=== PATIENT | male | born 1945 | race Caucasian/White ===

== ENCOUNTER 2018-04-29 14:30 | Outpatient (CLI) | payer MEDICARE, BC ==
[~2018-04-29 14:30] MED LIST: Iopamidol 370 76% 100 ML VIAL ONE
== END 2018-04-29 14:31 | disposition home or self-care (01) ==
LOC: BICCT 14:30
PROVIDERS: ATTEND Family Medicine
DX: R10.9 Unspecified abdominal pain (principal); I31.1 Chronic constrictive pericarditis; K76.0 Fatty (change of) liver, not elsewhere classified
CPT/HCPCS: 74177

== ENCOUNTER 2018-05-31 13:38 | Outpatient (CLI) | payer MEDICARE, BC ==
--- NOTE | 2018-05-31 15:11 | ULT ---
ULTRASOUND WITH DOPPLER DUPLEX VENOUS LOWER EXTREMITY RIGHT: CPT: 81009 ICD-10-PCS: B54D HISTORY: Erythema, edema, and pain of right lower extremity. TECHNIQUE: Color flow Doppler, spectral waveform analysis of pulsed Doppler, and hester-scale imaging with denise lizzy and augmentation, were used to evaluate the bilateral common femoral, femoral, popliteal, industrial maintenance electrician ior tibial, and superficial femoral, veins; and the proximal portions of the profunda femoral and gre ater saphenous, veins. FINDINGS: There is appropriate compressibility and flow within the imaged deep vein system of the right lower e xtremity. There is abnormal increased echogenicity involving superficial vein of the medial right calf indicati ng superficial vein thrombus. IMPRESSION: 1. No deep vein thrombosis of the imaged right lower extremity. 2. Superficial thrombophlebitis. POS: [facility]
== END 2018-05-31 13:39 | disposition home or self-care (01) ==
LOC: SCSULT 13:38
PROVIDERS: ATTEND Physician Assistant
DX: R60.9 Edema, unspecified (principal); I80.01 Phlebitis and thrombophlebitis of superficial vessels of right lower extremity

== ENCOUNTER 2018-09-10 05:11 | Inpatient (IN) | payer MEDICARE, BC ==
[2018-09-10 06:05] LABS: #Lymphocytes 1.2 thou/uL (1.20-3.40); #Monocytes 0.8 thou/uL (0.11-0.59); #Neutrophils 6.4 thou/uL (1.40-6.50); %Basophils 0.5 % (0.0-1.0); %Eosinophils 0.5 % (0.0-10.0); %Lymphocytes 14.1 % (21.0-51.0); %Monocytes 9.2 % (0.0-10.0); %Neutrophils 75.7 % (42.0-75.0); Hemoglobin 17.8 g/dL (14.0-18.0); Mean Corpuscular Hemoglobin 29.9 pg (27.0-31.0); Mean Corpuscular Volume 87.9 fL (78.0-98.0); Mean Platelet Volume 7.4 fL (7.4-10.4); Platelet Count 200 thou/uL (130-400); RBC Distribution Width 12.5 % (11.5-14.5); Red Blood Cell (RBC) Count 5.96 mill/uL (4.70-6.10); White Blood Cell (WBC) Count 8.5 thou/uL (4.8-10.8)
[2018-09-10] MEDS ORDERED: Ondansetron PF 4 MG/2 ML Vial ONE (06:22)
[2018-09-10] MEDS ORDERED: Pantoprazole 40 MG VIAL ONE (06:22)
[2018-09-10] MEDS ORDERED: Morphine 4 MG/ML VIAL ONE ×2 (06:22→08:50)
[2018-09-10 06:29] LABS: ALT (SGPT) 23 U/L (8-55); AST (SGOT) 18 U/L (5-34); Albumin 4.4 g/dL (3.4-4.8); Alkaline Phosphatase 93 U/L (40-150); Anion Gap 17 mmol/L (10-20); BUN (Urea Nitrogen) 26 mg/dL (8.4-25.7); Bilirubin, Total 1.5 mg/dL (0.2-1.2); CK (CPK) 50 U/L (30-200); Calc. Creatinine Clearance 0 mL/min (70-130); Calcium 9.6 mg/dL (7.8-10.44); Carbon Dioxide 28 mmol/L (23-31); Chloride 99 mmol/L (98-107); Estimated GFR-MDRD 49; Globulin 3.2 g/dL (2.4-3.5); Glucose 137 mg/dL (83-110); Lipase 28 U/L (8-78); Protein, Total 7.6 g/dL (5.8-8.1); Sodium 140 mmol/L (136-145)
[2018-09-10 07:00] LABS: CKMB 0.7 ng/mL (0-6.6); Troponin I Less than 0.010 ng/mL (< 0.028)
[2018-09-10 07:55] LABS: Bilirubin Negative (Negative); Blood, Urine Negative (Negative); Clarity CLEAR (Clear); Glucose, Urine (Dipstick) Negative (Negative); Leukocyte Negative (Negative); Nitrite Negative (Negative); Protein, Urine (Dipstick) Negative (Neg-Trace); pH, Urine 6.5 (5.0-9.0)
[2018-09-10 08:01] LABS: Specific Gravity, Urine 1.052 (1.002-1.036)
[2018-09-10] MEDS ORDERED: Benzocaine 20% Spray 60 ML CAN ONE (08:04)
[2018-09-10] MEDS ORDERED: Oxymetazoline HCl 0.05% ( 15 ML ) ONE (08:04)
[2018-09-10] MEDS ORDERED: Acetaminophen 325 MG TAB PO PRN (08:37)
--- NOTE | 2018-09-10 08:48 | CT ---
PRELIMINARY REPORT/[facility]/EMERGENTY AFTER-HOURS PROCEDURE CT Abdomen and Pelvis With Intravenous Contrast EXAM DATE/TIME: 09/10/2018 6:42 AM CLINICAL HISTORY: 73 years old, male; Pain and signs and symptoms; Abdominal tenderness and bloating and vomiting; Abdo iftikhar pain; Epigastric; Additional info: 73 yo m presents to ed with abd pain. PT reports abd pain th at started sunday night around 11 pm, with associated nausea, vomiting, and a decrease in bowel mov ements due to reduced food intake. PT reports HX of similar pain with previous food intake. PT denies chest pain, denies diarrhea. PT reports HX of acid reflux, denies HX of cardiovascular issues, denie s HX of bowel obstructions, denies any previous abd surgeries. reports she had diarrhea and vomi ting last week after thanksgiving that resolved on sunday. TECHNIQUE: Axial computed tomography images of the abdomen and pelvis with intravenous contrast. Coronal reformatted images were created and reviewed. CONTRAST: 60 ml of isovue administered intravenously. COMPARISON: No relevant prior studies available. FINDINGS: Lower thorax: No acute findings. ABDOMEN: Liver: Normal. No mass. Gallbladder and bile ducts: Normal. No calcified stones. No ductal dilation. Pancreas: Normal. No ductal dilation. Spleen: Normal. No splenomegaly. Adrenals: Normal. No mass. Kidneys and ureters: Normal. No hydronephrosis. Stomach and bowel: The stomach is moderately distended. There are distended loops of small intestine. Dilated loops are present from the upper abdomen to the midpelvis. The large intestine is decompress ed. There are diverticula of the descending and sigmoid colon. No focal inflammatory changes. Appendix: No evidence of appendicitis. PELVIS: Bladder: Unremarkable. Reproductive: Unremarkable as visualized. ABDOMEN and PELVIS: Intraperitoneal space: Normal. No free air. No significant fluid collection. Bones/joints: No acute fracture. No dislocation. Soft tissues: Unremarkable. Vasculature: Normal. No abdominal aortic aneurysm. Lymph nodes: Normal. No enlarged lymph nodes. IMPRESSION: Gastric and intestinal distention may represent a nonspecific ileus. Bowel obstruction is also possib le. Followup is recommended. Thank you for allowing us to participate in the care of your patient. Dictated and Authenticated by: Saúl Trevizo MD 09/10/2018 7:23 AM Central Time ([place] & [place]) FINAL REPORT EMERGENCY AFTER HOURS CT ABDOMEN AND PELVIS: Date: 09/10/18 FINDINGS/IMPRESSION: I generally agree with the preliminary interpretation provided by [facility]. There is gastric and small subhash wel distention, which is most suspicious for a partial small bowel obstruction. There is suggested tr ansition zone in the right mid abdomen on image 61 of series 2. There is gas present within the colon and rectum. There is scattered colonic diverticula. There is a tiny amount of fluid in the pelvis. T here is fatty infiltration of the liver. There are pericardial calcifications. There are numerous tisha yps involving the stomach. IMPRESSION: 1. Findings suggestive of a mild to moderate partial small bowel obstruction. 2. Gastric polyps. Gastroenterology consultation recommended. 3. Colonic diverticulosis. 4. Fatty liver. 5. Pericardial calcifications. 6. Other chronic findings as above. CODE T. POS: [facility]
--- NOTE | 2018-09-10 09:54 | RAD ---
RADIOGRAPH ABDOMEN ONE VIEW: Date: 09-10-18 Time: 9:07 a.m. History: 73-year-old male status post NG tube placement for partial small bowel obstruction. FINDINGS: There is gastric distention of the stomach and multiple dilated centrally located small bowel loops. There is some gas in nondilated loop of transverse colon. NG tube side port is in the vicinity of the gastric cardia. Distal portion of NG tube is vertically oriented, and overlies the gastric fundus. IMPRESSION: 1. Nasogastric tube placement into the proximal stomach. 2. Abnormal bowel gas pattern which could be partial small bowel obstruction or ileus. POS: [facility]
--- NOTE | 2018-09-10 10:15 | HP ---
HISTORY OF PRESENT ILLNESS: This is a 73-year-old white male who presents with abdominal pain. The patient was doing well up until . He had dinner without complication. Immediately follo wing this he began developing some nausea and abdominal pain. His also was having marked diarrh ea following . The patient's symptoms continued to become worse. His belly became more distended. He presented to the [facility] and was diagnosed with a viral syndrome and was re commended supportive treatment. He was told to follow up in the ER if his symptoms became worse, whi ch they did. No reported fever. The patient has had nausea, vomiting, abdominal swelling and pain. The patient was seen in the ER, a CAT scan was performed and preliminary findings showed an ileus. No masses were noted. The patient had a similar complaint in 04/[address] of his abdome n was performed at that time which was unremarkable for any abdominal masses. The patient does not t [place] any pain medications at this time. He has had no previous abdominal surgeries. PAST MEDICAL HISTORY: GERD, hyperlipidemia. PAST SURGICAL HISTORY: None. Colonoscopy 2007, recommended an EGD which recommended repeat 5 years. FAMILY HISTORY: Father at 83 from an [place]. Mother with brain aneurysm. A sibling with prost ate cancer. SOCIAL HISTORY: Does not smoke, does not drink. 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 He does have children. ALLERGIES: None. REVIEW OF SYSTEMS: As above. PHYSICAL EXAMINATION: VITAL SIGNS: Stable, afebrile at this time. GENERAL: In moderate distress from abdominal distention. HEENT: Clear. NECK: Supple. HEART: Regular rate and rhythm. LUNGS: Clear. ABDOMEN: Distended. NG tube in place. EXTREMITIES: With no edema. LABORATORY DATA: White count 8.5 and H&H 17 and 52. Electrolytes normal. Creatinine 1.42, BUN 26, glucose 137. Liver functions normal. UA; specific gravity 1.052 with trace of ketones. ASSESSMENT: 1. Ileus with abdominal distention and pain. 2. Dehydration. 3. Acute kidney injury. 4. History of gastroesophageal reflux disease. 5. History of hyperlipidemia. PLAN: 1. Admit. 2. NG tube to wall suction. 3. Consult Dr. Butts. 4. Must rule out any abdominal mass. However, his CT in April was normal. The patient does not take any pain medications according to his at this time. Unsure why he would develop an ileus. He also has had no abdominal surgeries.
[2018-09-10 11:24] VITALS: BMI 25.0
[2018-09-10] MEDS: Famotidine/PF 20 mg/2ml Vial SLOW IVP SCH ×2 (11:41→20:45)
[2018-09-10] MEDS: Enoxaparin Sodium 40 MG/0.4 ML SYRINGE SC SCH (11:41)
[2018-09-10] MEDS: Ondansetron ODT 4 MG TAB PO PRN (11:54)
[2018-09-10] MEDS: Sodium Chloride 0.9% 1,000 ML IV SCH ×3 (11:54→20:45)
[2018-09-10] MEDS ORDERED: ISOVUE-370 76%-LOCM 1 ML ONE (11:59)
[2018-09-10] MEDS: Morphine 2 MG/ML SYRINGE SLOW IVP PRN (14:01)
--- NOTE | 2018-09-11 00:19 | CON ---
DATE OF CONSULTATION: 09/10/2018 GI INPATIENT CONSULTATION NOTE REASON FOR CONSULTATION: Ileus. HISTORY OF PRESENT ILLNESS: Dorian Carroll is a 73-year-old gentleman, seen in the past by my GI colleague, Dr. Darrel Butts. He had an EGD and a colonoscopy back in 2007 with findings of multiple gastric polyps, some nodular mucosa in the duodenum, mild distal esophageal stricture and distal esophagitis, and a single colon polyp which was removed. The colon polyp was an adenoma. The gastric polyps were benign fundic gland polyps. The duodenal biopsies showed heterotopic gastric mucosa and esophageal biopsies demonstrated no Chery's esophagus. He was started on a PPI at that time and has basically been on PPI since then. Otherwise, he takes only a cholesterol medication. He has no significant chronic gastrointestinal symptoms other than reflux, which is well controlled on omeprazole. He has had no abdominal surgeries. Dr. Butts had recommended a 5-year followup exam, for which the patient is overdue. He presented to the hospital today with 2 to 3 days of significant generalized abdominal pain, nausea, and multiple episodes of emesis. His reports that just after Thanksgiving dinner, she herself was feeling quite ill with nausea, vomiting, and significant diarrhea. This lasted only a couple of days but just around the time, her symptoms resolved, the patient himself got sick. He has had multiple episodes of nonbloody emesis and some loose stools, though frankly not a lot of stool output or oral intake. He was seen at an Urgent Care Clinic and received some Phenergan, but this really did not help and that prompted his presentation here. A CT of the abdomen and pelvis demonstrates dilation of the stomach and most of the small bowel down to the right mid abdomen or pelvic area. The colon is decompressed. There is no focal inflammatory stranding. No other significant abnormalities. Laboratory studies are consistent with some dehydration and acute kidney injury. A nasogastric tube was placed. Currently, he is feeling less nauseated. Abdominal discomfort does persist. He is quite uncomfortable with the nasogastric tube. He has been afebrile throughout. REVIEW OF SYSTEMS: Full review of systems including constitutional, head, eyes, ears, nose, throat, GI, , cardiovascular, respiratory, musculoskeletal, and neurologic system are negative except as noted in the HPI. ALLERGIES: NO KNOWN DRUG ALLERGIES. OUTPATIENT MEDICATIONS: 1. Zocor. 2. Omeprazole 40 mg daily. SOCIAL HISTORY: No smoking, alcohol, or drug use. FAMILY HISTORY: Negative for GI malignancy. PHYSICAL EXAMINATION: VITAL SIGNS: Temperature 98.0, pulse 78, blood pressure 151/89, and 93% oxygen saturation on room air. GENERAL: A 73-year-old gentleman, lying in bed, in mild distress from abdominal discomfort and nasogastric tube discomfort. SKIN: No jaundice, no rashes were palpable. EYES: No scleral icterus. Extraocular movements intact. ENT: Mucous membranes are moist. No oral lesions. LYMPH: No submandibular or supraclavicular lymphadenopathy. THYROID: Nontender to palpation. HEART: Regular rate and rhythm. LUNGS: Clear to auscultation bilaterally. ABDOMEN: Mild distention, tympanitic to percussion throughout. Bowel sounds are hypoactive. No guarding or rebound tenderness. Some generalized tenderness to palpation, particularly in the lower abdomen. EXTREMITIES: No peripheral edema. VESSELS: Radial pulses 2+ bilaterally. NEURO: Cranial nerves 2 through 12 intact bilaterally. No focal deficits. LABORATORY STUDIES: Hemoglobin 17.8, WBC 8.5, platelets 200. Sodium 140, potassium 4.0, BUN 26, creatinine 1.42, troponin negative, lipase 28, total bilirubin 1.5, alkaline phosphatase 93, AST 18, ALT 23, albumin 2.4. IMAGING STUDIES: CT of the abdomen and pelvis demonstrates dilation of the stomach and small bowel down to the level of the pelvis. There may be a transition point at the right mid abdomen. The colon is decompressed. There are no focal inflammatory changes. There are some gastric polyps and diverticulosis, as well as fatty liver. The skin is otherwise unremarkable. ASSESSMENT AND PLAN: 1. Ileus, acute over the past 2 to 3 days. 2. Nausea and vomiting, secondary to ileus. 3. History of colon polyps. 4. History of gastric polyps. 5. Gastroesophageal reflux disease. The patient's CT findings are consistent with small bowel ileus versus mechanical small bowel obstruction. Clinically, I would favor ileus, likely postviral. The patient has had no abdominal surgeries and really no risk factors to develop mechanical small bowel obstruction. At this point, I would continue conservative treatment, keep nasogastric tube to low intermittent suction for now. Continue supportive care with antiemetics and pain medications, as well as IV fluids. I would expect symptoms to improve over the next day or two. Once the patient's nausea and pain are better, I could trial clamping the nasogastric tube and starting a clear liquid diet. The patient is overdue for surveillance EGD and colonoscopy with Dr. Butts, but this can be arranged on an outpatient basis after resolution of this is episode. Thank you for the consultation. Please call me at anytime with questions or concerns. Job ID: [id number]
[2018-09-11] MEDS: Sodium Chloride 0.9% 1,000 ML IV SCH ×3 (04:27→17:58)
[2018-09-11 04:58] LABS: #Lymphocytes 1.2 thou/uL (1.20-3.40); #Monocytes 0.6 thou/uL (0.11-0.59); #Neutrophils 3.4 thou/uL (1.40-6.50); %Eosinophils 0.6 % (0.0-10.0); %Monocytes 11.9 % (0.0-10.0); %Neutrophils 64.6 % (42.0-75.0); Hemoglobin 14.2 g/dL (14.0-18.0); Mean Corpuscular HGB CONC 34.3 g/dL (32.0-36.0); Mean Corpuscular Volume 87.5 fL (78.0-98.0); Mean Platelet Volume 7.6 fL (7.4-10.4); Platelet Count 174 thou/uL (130-400); RBC Distribution Width 12.3 % (11.5-14.5); Red Blood Cell (RBC) Count 4.75 mill/uL (4.70-6.10); White Blood Cell (WBC) Count 5.2 thou/uL (4.8-10.8)
[2018-09-11 05:01] LABS: ALT (SGPT) 29 U/L (8-55); AST (SGOT) 23 U/L (5-34); Albumin 3.2 g/dL (3.4-4.8); Alkaline Phosphatase 65 U/L (40-150); Anion Gap 11 mmol/L (10-20); BUN (Urea Nitrogen) 19 mg/dL (8.4-25.7); Bilirubin, Total 0.9 mg/dL (0.2-1.2); Calc. Creatinine Clearance 80 mL/min (70-130); Calcium 8.3 mg/dL (7.8-10.44); Carbon Dioxide 24 mmol/L (23-31); Chloride 109 mmol/L (98-107); Estimated GFR-MDRD 81; Globulin 2.3 g/dL (2.4-3.5); Glucose 102 mg/dL (83-110); Protein, Total 5.5 g/dL (5.8-8.1); Sodium 140 mmol/L (136-145)
[2018-09-11] MEDS: Enoxaparin Sodium 40 MG/0.4 ML SYRINGE SC SCH (09:04)
[2018-09-11] MEDS: Famotidine/PF 20 mg/2ml Vial SLOW IVP SCH ×2 (09:04→20:18)
--- NOTE | 2018-09-11 12:26 | PRG ---
DATE OF SERVICE: 09/11/2018 SUBJECTIVE: The patient is feeling better this morning. He still feels somewhat bloated. He is not back yet to baseline. OBJECTIVE: VITAL SIGNS: Temperature 97.4, pulse 71, respirations 16, pulse ox 91, blood pressure 132/72. HEART: Regular rate and rhythm. LUNGS: Clear. ABDOMEN: Softer. . Minimal output from the NG tube. LABORATORY DATA: White count 5.2, H and H of 14 and 41. Electrolytes are normal. Creatinine 0.91, BUN 19. Liver functions are normal. ASSESSMENT: 1. Ileus secondary to viral syndrome. 2. Nausea and vomiting, improving. 3. Dehydration. 4. Acute kidney injury. 5. Gastroesophageal reflux disease. 6. History of gastric and colon polyps. 7. Hyperlipidemia. PLAN: 1. Continue NG tube to low intermittent wall suction. 2. Continue IV hydration. 3. Increase activity. 4. Outpatient EGD and colonoscopy. Job ID: [id number]
[2018-09-11] MEDS: Ondansetron ODT 4 MG TAB PO PRN (18:18)
--- NOTE | 2018-09-11 19:01 | PRG ---
DATE OF SERVICE: 09/11/2018 SUBJECTIVE: The patient reported small bowel movements and he is being passing gas all day. He has had no nausea or vomiting. He has been tolerating ice chips. He still complaining of some abdominal soreness. OBJECTIVE: VITAL SIGNS: Temperature 97.9, pulse 69, respiratory rate 18, blood pressure 127/76. HEENT: Unremarkable. NECK: Supple. CHEST: Clear. CARDIOVASCULAR: Regular rate and rhythm. ABDOMEN: Soft, slightly distended, protuberant, diffusely tympanitic. Bowel sounds are hypoactive. Nontender. EXTREMITIES: Normal. NEUROLOGIC: Nonfocal. LABORATORY DATA: Shows white blood cell count 5.2, hemoglobin 14.2 with hematocrit 41.5, albumin 3.2. ASSESSMENT: Ileus versus small bowel obstruction. RECOMMENDATIONS: 1. . 2. Gastrografin small bowel series in a.m. Job ID: [id number]
--- NOTE | 2018-09-11 23:47 | RAD ---
SMALL BOWEL FOLLOW THROUGH 09/11/18 COMPARISON: None. HISTORY: Ileus versus small bowel obstruction, distention, and pain. FINDINGS: The portal architect radiograph demonstrates a nasogastric tube curling in the left upper quadrant. There is ext ensive gaseous distention of dilated small bowel throughout the abdomen/pelvis. The patient was admin istered gastrografin via the nasogastric tube. 15 minute imaging demonstrates contrast medial within the stomach. 30 minute imaging demonstrates contrast media extending into dilated proximal small angel l loops. Dilated small bowel loops continue to fill within the midline abdomen and pelvis on 1.5 and 2.5 hour imaging. There is some contrast media extending into the proximal colon on 4.5 hour imaging. IMPRESSION: Extensive distended gas filled small bowel throughout the abdomen/pelvis with significant delay in co ntrast medial transit time to the colon. Findings suggest partial small bowel obstruction and/or ile us. No evidence for complete small bowel obstruction as the contrast media does eventually reach the colon. A followup KUB on the morning of 08/12/18 may be beneficial to evaluate for passage of the contrast m edia. POS: [facility]
[2018-09-12] MEDS: Sodium Chloride 0.9% 1,000 ML IV SCH ×4 (03:42→20:19)
[2018-09-12 04:48] LABS: #Basophils 0.1 thou/uL (0.0-0.2); #Eosinphils 0.1 thou/uL (0.0-0.7); #Lymphocytes 1.4 thou/uL (1.20-3.40); #Monocytes 0.6 thou/uL (0.11-0.59); #Neutrophils 3.5 thou/uL (1.40-6.50); %Basophils 2.2 % (0.0-1.0); %Eosinophils 0.9 % (0.0-10.0); %Monocytes 10.8 % (0.0-10.0); Hemoglobin 14.2 g/dL (14.0-18.0); Mean Corpuscular Hemoglobin 30.4 pg (27.0-31.0); Mean Corpuscular Volume 86.8 fL (78.0-98.0); Mean Platelet Volume 7.8 fL (7.4-10.4); Platelet Count 184 thou/uL (130-400); RBC Distribution Width 12.1 % (11.5-14.5); Red Blood Cell (RBC) Count 4.68 mill/uL (4.70-6.10); White Blood Cell (WBC) Count 5.7 thou/uL (4.8-10.8)
[2018-09-12 04:58] LABS: Anion Gap 13 mmol/L (10-20); BUN (Urea Nitrogen) 15 mg/dL (8.4-25.7); Calc. Creatinine Clearance 71 mL/min (70-130); Calcium 8.5 mg/dL (7.8-10.44); Carbon Dioxide 24 mmol/L (23-31); Chloride 109 mmol/L (98-107); Estimated GFR-MDRD 71; Glucose 81 mg/dL (83-110); Potassium 3.5 mmol/L (3.5-5.1); Sodium 142 mmol/L (136-145)
[2018-09-12] MEDS: Enoxaparin Sodium 40 MG/0.4 ML SYRINGE SC SCH ×2 (08:48→09:36)
[2018-09-12] MEDS: Famotidine/PF 20 mg/2ml Vial SLOW IVP SCH ×2 (08:49→20:17)
--- NOTE | 2018-09-12 09:16 | RAD ---
ABDOMEN 1 VIEW: HISTORY: Ileus. FINDINGS: Comparison is made with the exam of previous day. There is residual contrast in the colon and rectum. There is colonic diverticulosis. Air and contra st are noted in dilated loops of small bowel. A nasogastric tube is present in the stomach. IMPRESSION: No evidence of high-grade bowel obstruction. POS: [facility]
--- NOTE | 2018-09-12 13:33 | PRG ---
DATE OF SERVICE: 09/12/2018 SUBJECTIVE: The patient is doing well. He has had a large amount of stool and bowel movements. He is also passing large amount of gas. He has had no nausea or vomiting. OBJECTIVE: VITAL SIGNS: Temperature 97.7, pulse 81, respiratory rate 20, and blood pressure 139/80. CHEST: Clear. CARDIOVASCULAR: Regular rate and rhythm. ABDOMEN: Soft, slightly protuberant, but less so than yesterday, tympanitic, bowel sounds present. LABORATORY DATA: Shows a normal BMP. CBC showed a white blood cell count of 5.7, hemoglobin 14.2, hematocrit 40.6. Small bowel series done yesterday showed extensively distended small bowel throughout the abdomen with delay in contrast transmission time to the colon. Findings suggested partial small obstruction and/or ileus. Followup KUB done this morning showed distended small bowel with decompressed colon. ASSESSMENT: Partial small bowel obstruction versus ileus - seems to be improving, although reviewing the films, it shows that the small bowel is significantly dilated. RECOMMENDATIONS: 1. May consider surgical opinion to follow along with us. 2. Begin a trial of full liquids. Job ID: [id number]
--- NOTE | 2018-09-12 15:18 | PRG ---
DATE OF SERVICE: 09/12/2018 SUBJECTIVE: The patient is feeling much better this morning. He has been passing stool all night following the small bowel follow-through. He is complained of being hungry. OBJECTIVE: VITAL SIGNS: Temperature 98.5, pulse 82, respirations 18, blood pressure 142/81. GENERAL: In no acute distress. HEART: Regular rate and rhythm. LUNGS: Clear. ABDOMEN: Soft. Normal bowel sounds. LABORATORY DATA: White count 5.7, H and H 14 and 40, sodium 142, potassium 3.5, chloride 109, creatinine 1.02, BUN 15, and glucose 81. ASSESSMENT: 1. Ileus secondary to acute gastroenteritis. 2. Nausea and vomiting, resolved. 3. Dehydration. 4. Acute kidney injury, resolving. 5. Gastroesophageal reflux disease. 6. History of gastric and colon polyps. 7. Hyperlipidemia. PLAN: 1. Hopefully, the NG tube will be pulled today. 2. If the patient tolerates regular diet, possibly can go home this evening. 3. The patient will need an outpatient EGD and colonoscopy. Job ID: [id number]
[2018-09-12] MEDS: Morphine 2 MG/ML SYRINGE SLOW IVP PRN (20:19)
[2018-09-13] MEDS: Morphine 2 MG/ML SYRINGE SLOW IVP PRN (00:05)
--- NOTE | 2018-09-13 01:46 | CON ---
DATE OF CONSULTATION: 09/12/2018 CONSULTING PHYSICIAN: Dr. Darrel Butts. REASON FOR CONSULTATION: Partial small-bowel obstruction. HISTORY OF PRESENT ILLNESS: The patient is a very pleasant 73-year-old white male. He notes that this past Sunday (after ), that he began feeling sick and vomited in the evening. For the next couple of days, he felt poorly with limited p.o. intake and a feeling of queasiness and some vomiting. He eventually presented to the hospital on Sunday, 09/10. At that time, laboratory and radiological evaluation was performed. He had elevated creatinine of 1.4. His CBC was entirely normal. CT scan revealed findings consistent potentially with a small intestinal ileus or a partial bowel obstruction. Nasogastric tube was placed and the patient was admitted to the hospital. He was seen in consultation by his compounder, Dr. Butts. A small-bowel follow-through study was obtained on the (yesterday). This revealed markedly delayed transit of contrast through the small bowel, which was dilated. On the followup images obtained this morning, most of the contrast had passed through into the colon. The left colon appeared decompressed. He still had evidence of dilated small bowel on the x-ray, however. The patient tells me that he had several watery bowel movements yesterday and today after his gastrografin study, consistent again with passage of contrast through his intestinal tract. His nasogastric tube was removed and restarted on a liquid diet. He is currently tolerating full liquids. He tells me he has been taking that without any nausea or vomiting. Again, he has had several bowel movements today after the study yesterday. He denies any pain at all, but tells me that at times, his abdomen does feel a little bit tight. Of note, the patient has no history of similar symptoms. He has never had any prior abdominal surgery. PAST MEDICAL HISTORY: 1. Gastroesophageal reflux disease. 2. Hyperlipidemia. MEDICATIONS: He takes two medications, one is a proton pump inhibitor and one is a statin, but he cannot remember the names. ALLERGIES: NO KNOWN DRUG ALLERGIES. PAST SURGICAL HISTORY: Negative other than a colonoscopy and EGD in 2007. PERSONAL AND SOCIAL HISTORY: He is with 2 children. He does not smoke. He drinks alcohol rarely. 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 REVIEW OF SYSTEMS: Otherwise unremarkable. He denies any significant problems with constipation. He denies any melena or hematochezia. FAMILY HISTORY: Noncontributory. PHYSICAL EXAMINATION: VITAL SIGNS: Temperature 98.0, pulse is 77, blood pressure 138/77. These vital signs have been stable since his admission. GENERAL: He is a well-developed, well-nourished, pleasant white male, resting in bed, in no acute distress. He is alert and oriented x3. HEAD, EYES, EARS, NOSE, THROAT: Unremarkable. NECK: Supple without mass or tenderness. LUNGS: Clear to auscultation throughout. CARDIAC: Regular rate and rhythm without murmur. ABDOMEN: Mildly to moderately distended. He has obvious abnormal bowel sounds. There is intermittent rushing bowel sounds as well as some tympanitic bowel sounds. His abdomen is nontender to palpation and he has no significant discomfort in any location. There are no palpable masses. RECTAL: Deferred. : He has no evidence of inguinal hernias. LABORATORY DATA: CBC has been essentially normal each day since he was admitted. His metabolic panel is normal as well with his creatinine having normalized after hydration. ASSESSMENT AND PLAN: The patient with abnormal bowel function following his admission. It is difficult to discern whether this is an obstructive process or resolving ileus. In light of his lack of prior surgery, I would favor this being a resolving ileus. I recommend continued observation for now, recommend he stick with liquids until evidence of his intestinal abnormality resolves. I will obtain a followup abdominal x-ray tomorrow. I also strongly recommended that, assuming this problem resolves, that he obtain a followup colonoscopy in the near future. Job ID: [id number]
[2018-09-13] MEDS: Sodium Chloride 0.9% 1,000 ML IV SCH ×2 (02:02→08:38)
[2018-09-13] MEDS: Enoxaparin Sodium 40 MG/0.4 ML SYRINGE SC SCH (08:39)
[2018-09-13] MEDS: Famotidine/PF 20 mg/2ml Vial SLOW IVP SCH (08:39)
[2018-09-13 09:11] LABS: Anion Gap 11 mmol/L (10-20); BUN (Urea Nitrogen) 11 mg/dL (8.4-25.7); Calc. Creatinine Clearance 83 mL/min (70-130); Calcium 8.7 mg/dL (7.8-10.44); Carbon Dioxide 22 mmol/L (23-31); Chloride 110 mmol/L (98-107); Estimated GFR-MDRD 86; Glucose 102 mg/dL (83-110); Potassium 3.6 mmol/L (3.5-5.1); Sodium 139 mmol/L (136-145)
--- NOTE | 2018-09-13 09:56 | RAD ---
ABDOMEN 1 VIEW: HISTORY: A 73-year-old male with a history of followup ileus/partial small bowel obstruction. FINDINGS: Persistent dilated small bowel loops with dilute contrast media in the colon from the previous small bowel series of 09/11/2018. IMPRESSION: Persistent small bowel dilatation with dilute contrast media in the colon. Evidence for a partial s mall bowel obstruction or focal ileus. Continued short-term followup. POS: [facility]
--- NOTE | 2018-09-13 13:02 | PRG ---
DATE OF SERVICE: SUBJECTIVE: The patient's abdomen is still mildly distended. He is passing gas and stool. OBJECTIVE: VITAL SIGNS: Temperature 97.7, pulse 66, respirations 20, pulse ox 95, blood pressure 131/73. HEART: Regular rate and rhythm. LUNGS: Clear. ABDOMEN: Soft. Minimal tenderness. Still slightly distended. LABORATORY DATA: Labs this a.m. none. ASSESSMENT: 1. Ileus, stable, slowly improving. 2. Nausea and vomiting, resolved. 3. Dehydration, improving. 4. Gastroesophageal reflux disease. 5. History of gastric and colon polyps. 6. Hyperlipidemia. PLAN: 1. Continue to observe. 2. KUB this morning. 3. Outpatient EGD and colonoscopy. Job ID: [id number]
--- NOTE | 2018-09-13 13:04 | PRG ---
DATE OF SERVICE: 09/13/2018 SUBJECTIVE: The patient is feeling better. He did have an episode of abdominal pain last night and had to receive a pain shot for that. Ever since then, he has been feeling good. He has been passing gas and some liquid. OBJECTIVE: VITAL SIGNS: Temperature 97.7, pulse 66, respiratory rate 20, blood pressure 131/73. CHEST: Clear. CARDIOVASCULAR: Regular rate and rhythm. ABDOMEN: Slightly distended, but less so than yesterday. Tympany is present, but seems to be less than yesterday. Bowel sounds are present. EXTREMITIES: Normal. LABORATORY DATA: Shows CO2 22. Abdominal films show persistent small bowel dilatation with diluted contrast media in the colon. ASSESSMENT: Ileus versus partial small bowel obstruction. RECOMMENDATIONS: 1. Continue full liquid diet. 2. We will defer to Dr. Kingsley, as far as next step. 3. Outpatient colonoscopy. Job ID: [id number]
[2018-09-13] MEDS ORDERED: Polyethylene Glycol 3350 17 GM Packet PO SCH (15:15)
[2018-09-13] MEDS: Potassium Chloride 20 MEQ in Lactated Ringer's 1,000 ML IV SCH (16:52)
--- NOTE | 2018-09-13 17:40 | PRG ---
DATE OF SERVICE: 09/13/2018 SUBJECTIVE: Mr. Carroll remains hospitalized on the medical floor. This is hospital day #4 for him. He had either an ileus or partial small bowel obstruction. I initially saw him yesterday. He was tolerating a liquid diet when I saw him yesterday. He notes that he had an episode of pain overnight, for which he required a dose of Morphine, but thereafter the pain resolved, and he was able to sleep through the night. He notes that he passed a large volume of flatus around the time that his pain resolved. It sounds like he was having abdominal gas pain. He notes that he is still tolerating his full liquid diet. He denies any significant bowel movement since last visit. He is urinating well. He is ambulating regularly. KUB was obtained today. This does still reveal some evidence of dilated small bowel, but have clearly improved from yesterday. He still has a very decompressed left colon with some contrast within it. OBJECTIVE: GENERAL: He is afebrile. Pulse 66, blood pressure 131/73. LUNGS: Clear to auscultation. ABDOMEN: Soft and nontender. Bowel sounds are present and normoactive. There is no significant rushing bowel sounds are tympany appreciated today. LABORATORY DATA: His basic metabolic panel is unremarkable with minimal electrolyte abnormalities. His chloride is a little bi high and his CO2 is little bit low, but this is typical, the patient has been on normal saline. ASSESSMENT: The patient seems to be doing well. What appeared to be is that he has had some degree of an ileus that is resolving/almost resolved. I would recommend continuation of full liquid diet for now. I would start him on MiraLax and request his first dose to be given now. I will also resume his oral home medication. His IV fluids have been running at 150 mL/h, and I will decrease these and change them to lactated ringers. I would anticipate that he should be stable for discharge tomorrow. I would recommend for the short-term at least that he continue to take MiraLax once per day. As he has not required any surgery, he is stable for discharge over the weekend, and I will not need to see him in followup. Dr. Damon will see him in my absence. Job ID: [id number]
[2018-09-13] MEDS: Simvastatin 40 MG TAB PO SCH (20:01)
--- NOTE | 2018-09-14 08:05 | RAD ---
KUB: Date: 09/14/18 INDICATION: History of ileus. COMPARISON: Prior exam dated 09/13/18. IMPRESSION: Dilated loops of small bowel and colon persist. Contrast within the colon and rectum is present. Some of the contrast is now more distally migrated. No acute osseous abnormality is noted. POS: [facility]
[2018-09-14] MEDS: Polyethylene Glycol 3350 17 GM Packet PO SCH (09:03)
[2018-09-14] MEDS: Enoxaparin Sodium 40 MG/0.4 ML SYRINGE SC SCH (09:04)
--- NOTE | 2018-09-14 11:43 | PRG ---
DATE OF SERVICE: 09/14/2018 SUBJECTIVE: The patient is still distended. He had a large amount of gas and liquid stool today. He is still only on full liquids. OBJECTIVE: VITAL SIGNS: Temperature 97.8, pulse 68, respiratory rate 18, and blood pressure 148/92. CHEST: Clear. CARDIOVASCULAR: Regular rate and rhythm. ABDOMEN: Soft. Distended. Diffusely tympanitic. Bowel sounds are present. LABORATORY DATA: No new laboratory. Abdominal x-ray shows continued bowel distension, and dilated loops of bowel are noted. There is a mention of possibly some dilated colon, however, reviewing, these films are not appreciating any dilated colon. ASSESSMENT: Ileus versus partial small bowel obstruction - persistent. RECOMMENDATIONS: 1. Continue full liquids. 2. Continue activity. 3. We will defer further management to Dr. Damon. Job ID: [id number]
[2018-09-14] MEDS: Potassium Chloride 20 MEQ in Lactated Ringer's 1,000 ML IV SCH (13:19)
--- NOTE | 2018-09-14 14:59 | EKG ---
Test Reason : Blood Pressure : / mmHG Vent. Rate : 084 BPM Atrial Rate : 084 BPM P-R Int : 176 ms QRS Dur : 098 ms QT Int : 370 ms P-R-T Axes : 035 071 006 degrees QTc Int : 437 ms Normal sinus rhythm Cannot rule out Inferior infarct , age undetermined Abnormal ECG Confirmed by KAVITHA ROBERTO ([id number]), state editor SARITHA WORLEY ([id number]) on 09/14/2018 2:58:39 PM Referred By: Confirmed By:KAVITHA ROBERTO
[2018-09-14] MEDS: Simvastatin 40 MG TAB PO SCH (20:08)
[2018-09-15 06:00] LABS: Anion Gap 12 mmol/L (10-20); BUN (Urea Nitrogen) 7 mg/dL (8.4-25.7); Calc. Creatinine Clearance 79 mL/min (70-130); Calcium 8.8 mg/dL (7.8-10.44); Carbon Dioxide 24 mmol/L (23-31); Chloride 107 mmol/L (98-107); Estimated GFR-MDRD 80; Glucose 109 mg/dL (83-110); Magnesium 2.3 mg/dL (1.6-2.6); Phosphorus 3.5 mg/dL (2.3-4.7); Potassium 3.6 mmol/L (3.5-5.1); Sodium 139 mmol/L (136-145)
[2018-09-15] MEDS: Polyethylene Glycol 3350 17 GM Packet PO SCH (08:45)
[2018-09-15] MEDS: Enoxaparin Sodium 40 MG/0.4 ML SYRINGE SC SCH (08:45)
--- NOTE | 2018-09-15 09:15 | RAD ---
ABDOMEN TWO VIEWS: INDICATIONS: Small bowel obstruction versus ileus. COMPARISON: 09/14/2018 FINDINGS/IMPRESSION: The small and large bowel gaseous distention appears slightly less prominent than the prior exam. Ga s remains at the level of the rectum. The lung bases are clear. Osseous structures are unchanged. POS: [facility]
[2018-09-15] MEDS: Simvastatin 40 MG TAB PO SCH (20:19)
--- NOTE | 2018-09-16 07:48 | PRG ---
DATE OF SERVICE: 09/15/2018 SUBJECTIVE: The patient is feeling well. He doubled up on his full liquids and tolerated that well. He has had a large number of liquid bowel movements and large amount of gas. He denies any abdominal pain. OBJECTIVE: VITAL SIGNS: Temperature of 97.7, pulse 85, respiratory rate 18, and blood pressure 130/87. HEENT: Unremarkable. CHEST: Clear. CARDIOVASCULAR: Regular rate and rhythm. ABDOMEN: Soft and nontender. Slightly distended. Slightly tympanitic. Bowel sounds present. RECTAL: Deferred. EXTREMITIES: Normal. LABORATORY DATA: Shows a pre-albumin of 20, normal chemistries. ASSESSMENT: Ileus versus partial small bowel obstruction - slow clinical improvement. RECOMMENDATIONS: 1. Dr. Damon has ordered some abdominal films. 2. Could consider advancement of diet. The other possibility is, since he seems to be tolerating and passing liquids well, consideration for colonoscopy. We will discuss with Dr. Damon. Job ID: [id number]
[2018-09-16] MEDS: Polyethylene Glycol 3350 17 GM Packet PO SCH (07:58)
[2018-09-16] MEDS: Enoxaparin Sodium 40 MG/0.4 ML SYRINGE SC SCH (07:58)
--- NOTE | 2018-09-16 11:20 | PRG ---
DATE OF SERVICE: 09/16/2018 SUBJECTIVE: The patient is doing well. Although, last night, he had some pain, required some pain medication. He has had no nausea or vomiting, but if he eats a lot, which is just liquids at this point, he will have significant fullness and pressure-like discomfort. OBJECTIVE: VITAL SIGNS: Temperature 98.0, pulse 76, respiratory rate 20, and blood pressure 124/79. HEENT: Unremarkable. NECK: Supple. CHEST: Clear. CARDIOVASCULAR: Regular rate and rhythm. ABDOMEN: Soft and diffusely tympanitic. Bowel sounds are present. RECTAL: Deferred. LABORATORY DATA: Laboratory shows no new laboratory. ASSESSMENT: Partial small-bowel obstruction - this does not seem to be clinically improving. The patient may need to have something more definitive done. RECOMMENDATIONS: We will defer to Surgery. Job ID: [id number]
--- NOTE | 2018-09-16 12:20 | RAD ---
UPRIGHT AND SUPINE FRONTAL IMAGING OF THE ABDOMEN AND PELVIS: Date: 09-16-18 Comparison: 09-15-18 History: Small bowel obstruction versus ileus. FINDINGS: The upright imaging demonstrates no evidence for free intraperitoneal air. There are scattered air fluid levels within small bowel within the right lower quadrant and midabdome n, and likely in the region of the cecum. There are numerous dilated gas filled loops of small bowel seen throughout the abdomen or pelvis, slightly worsened since 09-15-18. IMPRESSION: Worsening small bowel gaseous distension. Findings may represent worsening small bowel obstruction or ileus. Follow up to resolution advised. POS: [facility]
--- NOTE | 2018-09-16 14:40 | CON ---
DATE OF CONSULTATION: 09/16/2018 SUBJECTIVE: The patient complains of mild abdominal discomfort. No nausea or vomiting. OBJECTIVE: VITAL SIGNS: Temperature 98, pulse 76, respirations 20, blood pressure 124/79. HEART: Regular rate and rhythm. LUNGS: Clear. ABDOMEN: Appears distended as when he first came in, minimal improvement from Sunday. LABORATORY DATA: None. ASSESSMENT: 1. Ileus with minimal improvement and possibly worse since last seen. 2. Nausea and vomiting, resolved. 3. Dehydration, resolved. 4. Gastroesophageal reflux disease. 5. History of gastric and colon polyps. 6. Hyperlipidemia. PLAN: We will await decisions by Surgery and GI. Job ID: [id number]
[2018-09-16] MEDS ORDERED: CEFAZOLIN 2 GM/50 ML-DEXTROSE 2 GM in Premix Bag 1 BAG IVPB SCH (16:15)
[2018-09-16] MEDS: Dextrose 5%-Lactated Ringers 1,000 ML IV SCH (18:05)
[2018-09-16] MEDS: Simvastatin 40 MG TAB PO SCH (19:37)
--- NOTE | 2018-09-16 22:42 | PRG ---
DATE OF SERVICE: 09/16/2018 SUBJECTIVE: Mr. Carroll remains hospitalized on the medical floor. This is hospital day #7 for him. He was felt to have either an ileus or partial small bowel obstruction. I last saw him on Sunday (today is Sunday). He seemed to be improving and I anticipated his discharge over the weekend. Unfortunately, he continues to have bloating, inability to advance diet, recurrent abdominal pain, significantly abnormal abdominal x-ray showing markedly dilated loops of small bowel. He currently has no complaints. He has been n.p.o. overnight. He has not vomited, and tells me he generally feels well currently. OBJECTIVE: VITAL SIGNS: On examination, he is afebrile. Pulse 76 and blood pressure 124/79. LUNGS: Clear to auscultation. ABDOMEN: Moderately distended. He has tympanitic bowel sounds. There is no focal tenderness in any quadrant nor is there any palpable mass. EXTREMITIES: Unremarkable. LABORATORY DATA: His basic metabolic panel from yesterday is unremarkable. Electrolytes are all fine. His pre-albumin level was normal at 20. His CBC has not been checked in 3 to 4 days. ASSESSMENT: The patient has persistent abnormality after observation for a week. This is certainly unusual for either a partial obstruction or an ileus. At this point, I think a definitive bowel evaluation is necessary and I have therefore scheduled him for exploratory laparoscopy for tomorrow. Depending upon the extent of his bowel dilatation, I may have to convert this to a laparotomy. I have discussed this in detail with the patient as well as potential risks. He understands and agrees to proceed in this fashion. Job ID: [id number]
[2018-09-16] MEDS ORDERED: diphenhydrAMINE 50 MG/ML VIAL IM PRN (23:22)
[2018-09-17] MEDS: Dextrose 5%-Lactated Ringers 1,000 ML IV SCH ×3 (02:12→21:30)
[2018-09-17 05:52] LABS: #Eosinphils 0.1 thou/uL (0.0-0.7); #Lymphocytes 1.6 thou/uL (1.20-3.40); #Monocytes 0.6 thou/uL (0.11-0.59); #Neutrophils 3.4 thou/uL (1.40-6.50); %Basophils 0.2 % (0.0-1.0); %Eosinophils 1.5 % (0.0-10.0); %Monocytes 10.3 % (0.0-10.0); %Neutrophils 60.1 % (42.0-75.0); Hemoglobin 15.4 g/dL (14.0-18.0); Mean Corpuscular HGB CONC 35.1 g/dL (32.0-36.0); Mean Corpuscular Hemoglobin 30.7 pg (27.0-31.0); Mean Corpuscular Volume 87.5 fL (78.0-98.0); Mean Platelet Volume 7.7 fL (7.4-10.4); Platelet Count 239 thou/uL (130-400); RBC Distribution Width 12.1 % (11.5-14.5); Red Blood Cell (RBC) Count 5.01 mill/uL (4.70-6.10); White Blood Cell (WBC) Count 5.6 thou/uL (4.8-10.8)
[2018-09-17 06:05] LABS: ALT (SGPT) 23 U/L (8-55); AST (SGOT) 18 U/L (5-34); Albumin 3.6 g/dL (3.4-4.8); Alkaline Phosphatase 76 U/L (40-150); Anion Gap 11 mmol/L (10-20); BUN (Urea Nitrogen) 12 mg/dL (8.4-25.7); Bilirubin, Total 0.8 mg/dL (0.2-1.2); Calc. Creatinine Clearance 67 mL/min (70-130); Calcium 8.9 mg/dL (7.8-10.44); Carbon Dioxide 28 mmol/L (23-31); Chloride 107 mmol/L (98-107); Estimated GFR-MDRD 66; Globulin 2.7 g/dL (2.4-3.5); Glucose 106 mg/dL (83-110); Potassium 3.8 mmol/L (3.5-5.1); Protein, Total 6.3 g/dL (5.8-8.1); Sodium 142 mmol/L (136-145)
[2018-09-17] MEDS: Polyethylene Glycol 3350 17 GM Packet PO SCH (08:44)
[2018-09-17] MEDS: Enoxaparin Sodium 40 MG/0.4 ML SYRINGE SC SCH (08:44)
[2018-09-17] MEDS ORDERED: CEFAZOLIN 2 GM/50 ML BAG ONE (14:07)
--- NOTE | 2018-09-17 14:21 | CON ---
DATE OF CONSULTATION: 09/17/2018 SUBJECTIVE: The patient is feeling well this morning. His abdominal distention is somewhat better today. He is passing gas, but no stool. He has had minimal intake for several days now. OBJECTIVE: VITAL SIGNS: Temperature 97.9, pulse 77, respirations 19, pulse ox 95, blood pressure 117/62. HEART: Regular rate and rhythm. LUNGS: Clear. ABDOMEN: Softer than yesterday, but still mildly distended. LABORATORY DATA: White count 5.6, H and H 15 and 43. Electrolytes, sodium 142, potassium 3.8, creatinine 1.09, BUN 12, blood sugar 109, 106. Liver function test normal. ASSESSMENT: 1. Ileus with minimal improvement. 2. Nausea and vomiting, resolved. 3. Dehydration, resolved. 4. Gastroesophageal reflux disease. 5. History of gastric and colon polyps. 6. Hyperlipidemia. PLAN: Diagnostic laparoscopy today by Dr. Kingsley. Job ID: [id number]
[2018-09-17] MEDS ORDERED: Fentanyl 100 MCG/2 ML VIAL ONE ×2 (15:25→18:07)
[2018-09-17] MEDS ORDERED: Bupivacaine/Epinephrine 0.25% 30 ML VIAL ONE (15:26)
[2018-09-17] MEDS ORDERED: Ondansetron PF 4 MG/2 ML Vial ONE (16:25)
[2018-09-17] MEDS ORDERED: Glycopyrrolate 0.2 MG/ML 5 ML SYRINGE ONE (16:25)
[2018-09-17] MEDS ORDERED: Lidocaine 1% PF 5 ML VIAL ONE (16:25)
[2018-09-17] MEDS ORDERED: PROPOFOL 200 MG/20 ML VIAL ONE (16:25)
[2018-09-17] MEDS ORDERED: Ketorolac Tromethamine 30 MG/ML VIAL ONE ×2 (16:25→17:05)
[2018-09-17] MEDS ORDERED: Dexamethasone 20 MG/5 ML VIAL ONE (16:25)
[2018-09-17] MEDS ORDERED: SUGAMMADEX SODIUM 200 MG/2 ML VIAL ONE (17:24)
[2018-09-17] MEDS ORDERED: Ondansetron HCl/PF 4 MG/2 ML Vial IVP PRN (17:38)
[2018-09-17] MEDS ORDERED: Promethazine HCl 25 MG/ML VIAL IM PRN (17:38)
[2018-09-17] MEDS ORDERED: Promethazine HCl 25 MG/ML VIAL SLOW IVP PRN (17:38)
[2018-09-17] MEDS ORDERED: Morphine 4 MG/ML VIAL SLOW IVP PRN (17:49)
[2018-09-17] MEDS: Simvastatin 40 MG TAB PO SCH (20:08)
[2018-09-18] MEDS: Dextrose 5%-Lactated Ringers 1,000 ML IV SCH ×3 (01:43→14:47)
[2018-09-18 06:51] LABS: Anion Gap 11 mmol/L (10-20); BUN (Urea Nitrogen) 11 mg/dL (8.4-25.7); Calc. Creatinine Clearance 75 mL/min (70-130); Calcium 8.9 mg/dL (7.8-10.44); Carbon Dioxide 23 mmol/L (23-31); Chloride 110 mmol/L (98-107); Estimated GFR-MDRD 76; Glucose 126 mg/dL (83-110); Potassium 4.6 mmol/L (3.5-5.1); Sodium 139 mmol/L (136-145)
[2018-09-18] MEDS: Polyethylene Glycol 3350 17 GM Packet PO SCH (08:23)
[2018-09-18] MEDS: Enoxaparin Sodium 40 MG/0.4 ML SYRINGE SC SCH (08:24)
[2018-09-18 08:30] LABS: #Lymphocytes 1.1 thou/uL (1.20-3.40); #Monocytes 0.8 thou/uL (0.11-0.59); #Neutrophils 6.8 thou/uL (1.40-6.50); %Eosinophils 0.1 % (0.0-10.0); %Lymphocytes 12.2 % (21.0-51.0); %Neutrophils 78.7 % (42.0-75.0); Hemoglobin 13.1 g/dL (14.0-18.0); Mean Corpuscular HGB CONC 33.2 g/dL (32.0-36.0); Mean Corpuscular Hemoglobin 28.6 pg (27.0-31.0); Mean Corpuscular Volume 86.1 fL (78.0-98.0); Mean Platelet Volume 7.5 fL (7.4-10.4); Platelet Count 230 thou/uL (130-400); RBC Distribution Width 11.8 % (11.5-14.5); Red Blood Cell (RBC) Count 4.58 mill/uL (4.70-6.10); White Blood Cell (WBC) Count 8.6 thou/uL (4.8-10.8)
--- NOTE | 2018-09-18 09:54 | PRG ---
DATE OF SERVICE: 09/18/2018 SUBJECTIVE: Mr. Carroll is postoperative day #1 from laparoscopic lysis of adhesions. I also performed an incidental appendectomy. This morning, he has no complaints. He has minimal pain. He denies nausea or vomiting. He is ambulating. OBJECTIVE: GENERAL: On examination, he is afebrile. VITAL SIGNS: Within normal limits. LUNGS: Clear to auscultation. ABDOMEN: Soft and nontender. Incisions are healing nicely. He does have some hypoactive bowel sounds. These are clearly diminished compared to yesterday. ASSESSMENT AND PLAN: He is doing well following surgery. I would anticipate he would have a couple of days of some degree of ileus after his surgery. I will advance him to a clear liquid diet today and encourage him to continue ambulating. Job ID: [id number] [facility]
--- NOTE | 2018-09-18 12:49 | CON ---
DATE OF CONSULTATION: 09/18/2018 SUBJECTIVE: The patient has some mild abdominal discomfort. He is postoperative day #1 status post diagnostic laparoscopy with appendectomy. OBJECTIVE: VITAL SIGNS: Temperature 97.5, pulse 66, respirations 18, pulse ox 95, blood pressure 101/51. HEART: Regular rate and rhythm. LUNGS: Clear. ABDOMEN: Slightly distended with mild soreness from yesterday. ASSESSMENT: 1. Postoperative day #1, status post diagnostic laparoscopy with appendectomy. 2. Ileus, stable. 3. Nausea and vomiting, resolved. 4. Dehydration, resolved. 5. Gastroesophageal reflux disease. 6. Hyperlipidemia. PLAN: We will talk with Dr. Kingsley this morning and discuss plan. Job ID: [id number]
--- NOTE | 2018-09-18 18:22 | PRG ---
DATE OF SERVICE: 09/18/2018 SUBJECTIVE: The patient is feeling better. He has had a large amount of gas per rectum. No bowel movements. He is still little slower from the surgery. Results showed some adhesions. OBJECTIVE: VITAL SIGNS: Temperature 97.5, pulse 66, respiratory rate 18, and blood pressure 101/51. CHEST: Clear. CARDIOVASCULAR: Regular rate and rhythm without murmurs or gallops. ABDOMEN: Soft, diffusely tender without rebound or guarding. Somewhat distended and tympanitic. RECTAL: Deferred. EXTREMITIES: Normal. NEUROLOGIC: Nonfocal. ASSESSMENT: Small bowel obstruction secondary to adhesions - status post laparoscopy. RECOMMENDATIONS: 1. Continue postop management. 2. Outpatient colonoscopy in 4 to 6 weeks. 3. We will sign off. Job ID: [id number]
[2018-09-18] MEDS: Simvastatin 40 MG TAB PO SCH (20:14)
--- NOTE | 2018-09-19 04:22 | OP ---
DATE OF PROCEDURE: 09/10/2018 PREOPERATIVE DIAGNOSIS: Small-bowel obstruction. POSTOPERATIVE DIAGNOSIS: Small-bowel obstruction secondary to unexplained adhesions in the right lower quadrant involving the terminal ileum. OPERATIONS PERFORMED: Laparoscopic enterolysis with full mobilization of small bowel, laparoscopic appendectomy. ANESTHESIA: General endotracheal. INDICATIONS: The patient is a 73-year-old white male. He had presented to the hospital with findings consistent with partial small-bowel obstruction. He has had ongoing evidence of partial obstruction with inability to advance his diet, occasional bloating and discomfort. Interestingly, the patient has never had prior abdominal surgery. When his symptoms persisted, he was taken to the operative room at this time for laparoscopic evaluation. DESCRIPTION OF OPERATION: Informed consent was obtained. The patient was taken to the operating room where general endotracheal anesthesia was obtained with the patient in supine position. Abdomen was prepped with ChloraPrep and draped in sterile fashion. A 5-mm infraumbilical incision was created through which a Veress needle was passed into the peritoneal cavity. Pneumoperitoneum was established using carbon dioxide up to pressure of 15 mmHg. A 5-mm trocar port was passed through the same incision and laparoscopic camera was passed through this port. Under direct vision, placed two additional 5- mm ports on the patient's left abdomen. Attention was turned intraabdominal. I was able to get excellent abdominal distention. The patient did have significant small-bowel distention noted throughout and I therefore turned my attention to the right lower quadrant. I was able to identify a normal-appearing cecum and appendix. The small bowel, however, leading to this, had obvious adhesions of uncertain etiology. It was adherent both to itself with interloop adhesions. There were adhesions between small bowel and adjacent mesentery and there were adhesions between the small bowel and the peritoneum of the right lateral pelvis. I utilized only meticulous sharp dissection to take down all adhesions. Each segment was meticulously mobilized, taking care to avoid any small bowel injury. There were a couple of areas of some minor bleeding that were quickly controlled with electrocautery. Eventually, with some degree of difficulty, I completely freed the distal 8-9 inches that were involved within the adhesions. The area was irrigated. All irrigant was aspirated. Because of the proximity of all this to the appendix, I decided to perform an appendectomy to alleviate the potential concerns with future pain in this area if there are further problems. The mesentery was taken down using electrocautery. The base of appendix was divided between PDS, Endoloops and the stump was cauterized. The appendix was removed intact through one of the 5-mm ports in the left abdomen. The abdomen was again irrigated. All irrigant was aspirated. All ports and instruments were removed under direct vision. Pneumoperitoneum was carefully evacuated. A 0.25% Marcaine with epinephrine was infiltrated in each port site. Skin edges were approximated with 4-0 Monocryl subcuticular suture. Dermabond was placed externally. There were no complications. The patient tolerated the procedure well and was taken to recovery room in stable condition. Job ID: [id number]
[2018-09-19] MEDS: Polyethylene Glycol 3350 17 GM Packet PO SCH (08:24)
[2018-09-19] MEDS: Enoxaparin Sodium 40 MG/0.4 ML SYRINGE SC SCH (08:25)
[2018-09-19] MEDS: Dextrose 5%-Lactated Ringers 1,000 ML IV SCH ×2 (08:30)
--- NOTE | 2018-09-19 13:40 | PRG ---
DATE OF SERVICE: 09/19/2018 SUBJECTIVE: Mr. Carroll is postoperative day #2 following laparoscopic lysis of adhesions. He is starting clear liquids. He tells me he has a lot of flatus, but has not had a bowel movement. He is ambulating regularly. He unfortunately tells me that he does belch quite a bit. He denies any pain. OBJECTIVE: VITAL SIGNS: On examination, he is afebrile. Pulse is stable in the 70s. Blood pressure is 110/70. LUNGS: Clear to auscultation. ABDOMEN: Soft. It does not appear to be particularly distended. There is no tenderness except for some mild angela-incisional tenderness. He has some bowel sounds that seem to be more active than yesterday, and there does not appear to be any significant tympanitic sounds today. ASSESSMENT AND PLAN: He appears to be improving appropriately after his laparoscopic lysis of adhesions. Hopefully, his ileus and resolution of his bowel obstruction will progress to the point that we could advance his diet. He is not ready for discharge today, but hopefully tomorrow. Job ID: [id number]
--- NOTE | 2018-09-19 14:53 | CON ---
DATE OF CONSULTATION: 09/19/2018 SUBJECTIVE: The patient is doing well this morning. Doing better after surgery yesterday. OBJECTIVE: VITAL SIGNS: Temperature 97.8, pulse 89, respiration 18, pulse ox 98, blood pressure 110/70. GENERAL: In no acute distress. HEART: Regular rate and rhythm. LUNGS: Clear. ABDOMEN: Soft. LABORATORY DATA: None. ASSESSMENT: 1. Postoperative day #1 status post lysis of adhesions with freeing of the small bowel. 2. Ileus, resolving. 3. Nausea and vomiting, resolved. 4. Dehydration, resolved. 5. Gastroesophageal reflux disease. 6. Hyperlipidemia. PLAN: The patient's appetite is improving. He feels his bowels moving. Hopefully, today can advance the diet and possibly discharge home tomorrow. Job ID: [id number]
[2018-09-19] MEDS: Simvastatin 40 MG TAB PO SCH (20:15)
[2018-09-20 07:28] VITALS: TEMP 97.4
[2018-09-20] MEDS: Polyethylene Glycol 3350 17 GM Packet PO SCH (08:52)
[2018-09-20] MEDS: Enoxaparin Sodium 40 MG/0.4 ML SYRINGE SC SCH (08:54)
--- NOTE | 2018-09-20 09:25 | PRG ---
DATE OF SERVICE: 09/20/2018 SUBJECTIVE: Mr. Carroll remains on the medical floor. He is postoperative day #3, following laparoscopic lysis of adhesions. He is on clear liquid diet since the surgery. He tells me that as of today, he has had numerous bowel movements. He denies any nausea or vomiting. He denies any significant discomfort. He denies significant belching as he was doing yesterday. PHYSICAL EXAMINATION: VITAL SIGNS: On examination, he is afebrile. Vital signs within normal limits. LUNGS: Clear to auscultation. ABDOMEN: Soft and nontender. His three laparoscopic port sites are healing nicely with minimal tenderness. Bowel sounds are present and normoactive. LABORATORY DATA: There were no labs obtained today. ASSESSMENT: He is doing well following laparoscopic lysis of adhesions. He had an unusual high-grade distal partial small bowel obstruction. The etiology of his adhesions are still uncertain. 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 Butts at some point after this hospitalization. PLAN: Plan for today is to advance him to a full liquid diet. I am sure he will tolerate this and will be fine for discharge home around lunchtime today. I would like to see him back in 10-14 days for followup visit. He requires no discharge medications as he has no significant pain. I have recommended a soft diet for one week and then regular diet thereafter. Job ID: [id number]
--- NOTE | 2018-09-20 12:51 | PRG ---
DATE OF SERVICE: 09/20/2018 SUBJECTIVE: The patient is doing remarkably well. He is ambulating in the magu[place]. He is very hungry. He is passing lots of gas and stool. OBJECTIVE: VITAL SIGNS: Temperature 97.4, pulse 80, respirations 18, pulse ox 95, blood pressure 117/75. HEART: Regular rate and rhythm. LUNGS: Clear. ABDOMEN: Soft, nontender. ASSESSMENT: 1. Postoperative day #2, status post lysis of adhesion with freeing of small bowel. 2. Ileus, resolved. 3. Nausea and vomiting, resolved. 4. Dehydration, resolved. 5. Gastroesophageal reflux disease. 6. Hyperlipidemia. PLAN: 1. Continue to advance diet. 2. Hopefully, he can be discharged home today. Job ID: [id number]
[2018-09-20 15:23] VITALS: BP 103/68
--- NOTE | 2018-09-21 08:42 | DIS ---
DATE OF ADMISSION: 09/10/2018 DATE OF DISCHARGE: 09/20/2018 DISCHARGE DIAGNOSES: 1. Postoperative day #2, status post lysis of abdominal adhesions with strain of small bowel. 2. Ileus, resolved. 3. Nausea and vomiting, resolved. 4. Dehydration, resolved. 5. Reflux. 6. Hyperlipidemia. DISCHARGE MEDICATIONS: None. BRIEF HISTORY: This is a 73-year-old white male, who presented with abdominal pain and swelling that began after Thanksgiving. His and himself developed a stomach bug. They had some nausea and abdominal pain with some diarrhea. His 's condition resolved; however, the patient continued to have abdominal pain and swelling. He then presented to the ER, where he was noted to have ileus. HOSPITAL COURSE: The patient was observed over several days. NG-tube was initially placed. However, his symptoms did not improve dramatically. His ileus remained and he continued to have abdominal swelling and discomfort. Dr. Kingsley took him to surgery and had a diagnostic laparoscopy and was found to have multiple abdominal adhesions with parts of the small bowel matted within the adhesions. The scar tissue was released. The patient was observed over 2 days and his bowel began to move. He is passing a plenty of gas and having multiple bowel movements at this time. He is feeling much better and he is now ready for discharge. He is tolerating a regular diet. Job ID: [id number]
== END 2018-09-20 15:17 | disposition home or self-care (01) | DRG 336 ==
LOC: ERS 05:11 → T4-B 08:03 → OBSVTOIN 16:31
PROVIDERS: ADMIT Family Medicine; ATTEND Family Medicine
PROC: 0DN84ZZ Release Small Intestine, Percutaneous Endoscopic Approach (ICD-10-PCS; principal; 2018-09-10)
PROC: 0DTJ4ZZ Resection of Appendix, Percutaneous Endoscopic Approach (ICD-10-PCS; 2018-09-10)
DX: K56.50 Intestinal adhesions [bands], unspecified as to partial versus complete obstruction (principal); N17.9 Acute kidney failure, unspecified; K56.7 Ileus, unspecified; E86.0 Dehydration; E78.5 Hyperlipidemia, unspecified; K21.9 Gastro-esophageal reflux disease without esophagitis; K52.9 Noninfective gastroenteritis and colitis, unspecified
CPT/HCPCS: 36415; 74018; 74019; 74177; 74250; 80048; 80053; 81003; 82550; 82553; 83690; 83735; 84100; 84134; 84484; 85025; 88304; 93005; 96361; 96374; 96375; 96376; 99213; C9113; G0463; J0131; J1100; J1200; J1650; J1885; J2001; J2270; J2405; J2704; J3010; J3480; J7120; Q0162; S0028

== ENCOUNTER 2019-02-17 08:56 | Outpatient (CLI) | payer MEDICARE, BC ==
--- NOTE | 2019-02-17 09:30 | RAD ---
MRI SAFETY DANIEL SINUSES: DATE: 02/17/2019. PROVIDED CLINICAL HISTORY: History of metal in the eye. FINDINGS: There is no evidence for metallic foreign body in the orbits. IMPRESSION: As above. POS: [facility]
--- NOTE | 2019-02-17 10:06 | MRI ---
MR of the right shoulder without contrast INDICATION: Right shoulder pain. Loss of range of motion TECHNIQUE: Sagittal T1, axial and coronal PD fat sat, sagittal and coronal T2 fat sat images were obt ained of the right shoulder. COMPARISON: None FINDINGS: Motion artifact limits image detail. Rotator cuff: Intact. There is moderate tendinosis involving the supraspinatus and infraspinatus. Glenohumeral joint: Articular cartilage is intact. Glenoid labrum: Intact Biceps tendon and biceps anchor: Intact and located. Acromion clavicular joint: There is severe AC joint osteoarthrosis with subchondral cystlike abnormal ities involving the acromial process and distal clavicle. Joint hypertrophy causes mild encroachment on the subjacent supraspinatus musculotendinous junction. Subacromial subdeltoid space: Small amount of fluid is seen within the subacromial subdeltoid bursa. Axillary region: No lymphadenopathy. Surrounding right shoulder musculature: Normal. No evidence of atrophy or strain. IMPRESSION: 1. Moderate supraspinatus and infraspinatus tendinosis without evidence of full-thickness tear. 2. 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 3. Small amount of fluid in the subacromial subdeltoid bursa may reflect underlying subacromial subde ltoid bursitis.
== END 2019-02-17 08:57 | disposition home or self-care (01) ==
LOC: BICMRI 08:56
PROVIDERS: ATTEND Orthopaedic Surgery
DX: M75.101 Unspecified rotator cuff tear or rupture of right shoulder, not specified as traumatic (principal); M25.511 Pain in right shoulder; M19.011 Primary osteoarthritis, right shoulder; M75.81 Other shoulder lesions, right shoulder
CPT/HCPCS: 70210

== ENCOUNTER 2022-04-24 14:21 | Outpatient (CLI) | payer MEDICARE, BC | END 2022-04-24 14:22 | disposition home or self-care (01) | LOC: ULT 14:21 | PROVIDERS: ATTEND Physician Assistant | DX: M79.661 Pain in right lower leg (principal); M25.471 Effusion, right ankle ==

== ENCOUNTER 2022-07-24 15:37 | Outpatient (CLI) | payer MEDICARE, BC | END 2022-07-24 15:38 | disposition home or self-care (01) | LOC: BICRAD 15:37 | PROVIDERS: ATTEND Family Medicine | DX: R10.30 Lower abdominal pain, unspecified (principal) | CPT/HCPCS: 36415; 74019; 80053; 81001; 85025 ==

== ENCOUNTER 2023-01-22 17:48 | Inpatient (IN) | payer MEDICARE, BC ==
[~2023-01-22 17:48] MED LIST changes: -Iopamidol 370 76% 100 ML VIAL ONE; +Iopamidol-370 76% 500 ML MDV (1 ML CHARGE) ONE
[2023-01-22] MEDS ORDERED: Morphine 4 MG/ML VIAL ONE ×2 (18:19→21:21)
[2023-01-22] MEDS ORDERED: Ondansetron PF 4 MG/2 ML Vial ONE (18:20)
[2023-01-22 18:36] LABS: #Lymphocytes 1.7 thou/uL (1.20-3.40); #Monocytes 0.8 thou/uL (0.11-0.59); #Neutrophils 4.4 thou/uL (1.40-6.50); %Basophils 0.2 % (0.0-1.0); %Eosinophils 0.2 % (0.0-10.0); %Lymphocytes 24.5 % (21.0-51.0); %Monocytes 11.2 % (0.0-10.0); %Neutrophils 63.9 % (42.0-75.0); Hemoglobin 16.4 g/dL (14.0-18.0); Mean Corpuscular HGB CONC 33.8 g/dL (32.0-36.0); Mean Corpuscular Hemoglobin 30.6 pg (27.0-31.0); Mean Corpuscular Volume 90.5 fl (78.0-98.0); Mean Platelet Volume 7.2 fL (7.4-10.4); Platelet Count 181 10x3/uL (130-400); RBC Distribution Width 12.9 % (11.5-14.5); Red Blood Cell (RBC) Count 5.34 mill/uL (4.70-6.10); White Blood Cell (WBC) Count 6.9 10x3/uL (4.8-10.8)
[2023-01-22 18:55] LABS: Bilirubin Negative (Negative); Blood, Urine Negative (Negative); Clarity Clear (Clear); Glucose, Urine (Dipstick) Normal (Negative); Ketone, Urine Negative (Negative); Leukocyte Negative Leu/uL (Negative); Nitrite Negative (Negative); Protein, Urine (Dipstick) Negative (Neg-Trace); Specific Gravity, Urine 1.014 (1.002-1.036); Urobilinogen Normal mg/dL (Less than 2); pH, Urine 5.5 (5.0-9.0)
[2023-01-22 18:56] LABS: ALT (SGPT) 22 U/L (8-55); AST (SGOT) 17 U/L (5-34); Albumin 4.4 g/dL (3.4-4.8); Alkaline Phosphatase 84 U/L (40-110); Anion Gap 14 mmol/L (10-20); BUN (Urea Nitrogen) 15 mg/dL (8.4-25.7); Bilirubin, Total 1.2 mg/dL (0.2-1.2); Calc. Creatinine Clearance 0 mL/min (70-130); Calcium 9.7 mg/dL (7.8-10.44); Carbon Dioxide 28 mmol/L (23-31); Chloride 102 mmol/L (98-107); Estimated GFR 62; Globulin 2.5 g/dL (2.4-3.5); Glucose 118 mg/dL (83-110); Lipase 30 U/L (8-78); Potassium 4.3 mmol/L (3.5-5.1); Protein, Total 6.9 g/dL (5.8-8.1); Sodium 140 mmol/L (136-145)
[2023-01-22] MEDS ORDERED: Benzocaine 20% Spray 60 ML CAN ONE (21:41)
[2023-01-22] MEDS ORDERED: Ondansetron PF 4 MG/2 ML Vial IVP PRN (21:55)
[2023-01-22] MEDS ORDERED: Ondansetron ODT 4 MG TAB PO PRN (21:55)
[2023-01-22] MEDS ORDERED: Acetaminophen 325 MG TAB PO PRN (21:55)
[2023-01-22] MEDS ORDERED: Pantoprazole 40 MG VIAL IVP SCH (22:00)
[2023-01-22 22:33] VITALS: BMI 23.6
[2023-01-22] MEDS: Sodium Chloride 0.9% 1,000 ML IV SCH (22:50)
[2023-01-23] MEDS: Morphine 2 MG/ML VIAL SLOW IVP PRN ×2 (05:31→10:59)
[2023-01-23 07:16] LABS: #Monocytes 0.7 thou/uL (0.11-0.59); #Neutrophils 3.5 thou/uL (1.40-6.50); %Basophils 0.2 % (0.0-1.0); %Eosinophils 0.4 % (0.0-10.0); %Monocytes 13.1 % (0.0-10.0); %Neutrophils 67.4 % (42.0-75.0); Hemoglobin 14.6 g/dL (14.0-18.0); Mean Corpuscular HGB CONC 32.5 g/dL (32.0-36.0); Mean Corpuscular Hemoglobin 29.6 pg (27.0-31.0); Mean Corpuscular Volume 90.9 fl (78.0-98.0); Mean Platelet Volume 7.9 fL (7.4-10.4); Platelet Count 161 10x3/uL (130-400); RBC Distribution Width 12.8 % (11.5-14.5); Red Blood Cell (RBC) Count 4.94 mill/uL (4.70-6.10); White Blood Cell (WBC) Count 5.3 10x3/uL (4.8-10.8)
[2023-01-23 07:35] LABS: Anion Gap 12 mmol/L (10-20); BUN (Urea Nitrogen) 13 mg/dL (8.4-25.7); Calc. Creatinine Clearance 61 mL/min (70-130); Calcium 9.1 mg/dL (7.8-10.44); Carbon Dioxide 26 mmol/L (23-31); Chloride 105 mmol/L (98-107); Estimated GFR 72; Glucose 115 mg/dL (83-110); Potassium 3.5 mmol/L (3.5-5.1); Sodium 139 mmol/L (136-145)
[2023-01-23] MEDS: Pantoprazole 40 MG VIAL IVP SCH ×2 (08:08→21:11)
[2023-01-23] MEDS: Sodium Chloride 0.9% 1,000 ML IV SCH ×2 (08:08→08:23)
[2023-01-23] MEDS ORDERED: Acetaminophen 500 MG TAB PO PRN ×2 (08:15→08:30)
[2023-01-23] MEDS: Lactated Ringer's 1,000 ML IV SCH ×2 (08:22→17:46)
[2023-01-23] MEDS ORDERED: MD-Gastroview 120 ML BOT ONE (09:59)
[2023-01-24] MEDS: Lactated Ringer's 1,000 ML IV SCH ×2 (00:15→02:45)
[2023-01-24 07:40] LABS: #Eosinphils 0.1 thou/uL (0.0-0.7); #Lymphocytes 1.2 thou/uL (1.20-3.40); #Monocytes 0.5 thou/uL (0.11-0.59); #Neutrophils 2.7 thou/uL (1.40-6.50); %Basophils 0.3 % (0.0-1.0); %Eosinophils 1.3 % (0.0-10.0); %Lymphocytes 26.6 % (21.0-51.0); %Neutrophils 60.8 % (42.0-75.0); Mean Corpuscular HGB CONC 33.7 g/dL (32.0-36.0); Mean Corpuscular Hemoglobin 30.6 pg (27.0-31.0); Mean Corpuscular Volume 90.8 fl (78.0-98.0); Mean Platelet Volume 7.6 fL (7.4-10.4); Platelet Count 149 10x3/uL (130-400); RBC Distribution Width 12.6 % (11.5-14.5); Red Blood Cell (RBC) Count 4.57 mill/uL (4.70-6.10); White Blood Cell (WBC) Count 4.4 10x3/uL (4.8-10.8)
[2023-01-24 08:02] LABS: Anion Gap 13 mmol/L (10-20); BUN (Urea Nitrogen) 17 mg/dL (8.4-25.7); Calc. Creatinine Clearance 63 mL/min (70-130); Calcium 8.6 mg/dL (7.8-10.44); Carbon Dioxide 24 mmol/L (23-31); Chloride 107 mmol/L (98-107); Estimated GFR 75; Glucose 83 mg/dL (83-110); Potassium 3.4 mmol/L (3.5-5.1); Sodium 141 mmol/L (136-145)
[2023-01-24] MEDS ORDERED: Potassium Chloride 20 MEQ TAB PO SCH (11:30)
[2023-01-24 15:32] VITALS: BP 135/78; TEMP 97.6
[2023-01-24] MEDS ORDERED: Simvastatin 40 MG TAB PO SCH (21:00)
[2023-01-24] MEDS ORDERED: Atorvastatin Calcium 20 MG TAB PO SCH (21:00)
[2023-01-25] MEDS ORDERED: Non-Formulary Item 1 EACH (Omeprazole [Omeprazole] 40 Capsule.Dr) PO SCH (09:00)
== END 2023-01-24 16:45 | disposition home or self-care (01) | DRG 389 ==
LOC: ERS 17:48 → T4-B 21:39
PROVIDERS: ADMIT Internal Medicine; ATTEND Internal Medicine
PROC: 0D9670Z Drainage of Stomach with Drainage Device, Via Natural or Artificial Opening (ICD-10-PCS; principal; 2023-01-22)
DX: K56.600 Partial intestinal obstruction, unspecified as to cause (principal); I31.1 Chronic constrictive pericarditis; K21.9 Gastro-esophageal reflux disease without esophagitis; E78.5 Hyperlipidemia, unspecified; K80.20 Calculus of gallbladder without cholecystitis without obstruction; K76.0 Fatty (change of) liver, not elsewhere classified; K21.00 Gastro-esophageal reflux disease with esophagitis, without bleeding; K22.70 Barrett's esophagus without dysplasia; E78.00 Pure hypercholesterolemia, unspecified; D12.6 Benign neoplasm of colon, unspecified; K57.30 Diverticulosis of large intestine without perforation or abscess without bleeding; E87.6 Hypokalemia; Z79.899 Other long term (current) drug therapy; Z98.890 Other specified postprocedural states
CPT/HCPCS: 36415; 74018; 74019; 74177; 74250; 76705; 80048; 80053; 81003; 83690; 84484; 85025; 93005; 96374; 96375; 96376; C9113; J2270; J2272; J2405; J7050; J7120; Q9963; Q9967

== ENCOUNTER 2023-01-24 22:23 | Inpatient (IN) | payer MEDICARE, BC ==
[2023-01-24 22:46] LABS: #Lymphocytes 1.7 thou/uL (1.20-3.40); #Monocytes 0.6 thou/uL (0.11-0.59); #Neutrophils 3.5 thou/uL (1.40-6.50); %Basophils 0.6 % (0.0-1.0); %Eosinophils 0.5 % (0.0-10.0); %Lymphocytes 28.8 % (21.0-51.0); %Monocytes 9.9 % (0.0-10.0); %Neutrophils 60.2 % (42.0-75.0); Hemoglobin 15.8 g/dL (14.0-18.0); Mean Corpuscular Hemoglobin 31.4 pg (27.0-31.0); Mean Corpuscular Volume 89.9 fl (78.0-98.0); Mean Platelet Volume 7.4 fL (7.4-10.4); Platelet Count 187 10x3/uL (130-400); RBC Distribution Width 12.6 % (11.5-14.5); Red Blood Cell (RBC) Count 5.03 mill/uL (4.70-6.10); White Blood Cell (WBC) Count 5.9 10x3/uL (4.8-10.8)
[2023-01-24 23:07] LABS: ALT (SGPT) 16 U/L (8-55); AST (SGOT) 15 U/L (5-34); Albumin 4.2 g/dL (3.4-4.8); Alkaline Phosphatase 85 U/L (40-110); Anion Gap 18 mmol/L (10-20); BUN (Urea Nitrogen) 17 mg/dL (8.4-25.7); Bilirubin, Total 1.3 mg/dL (0.2-1.2); Calc. Creatinine Clearance 0 mL/min (70-130); Calcium 9.8 mg/dL (7.8-10.44); Carbon Dioxide 25 mmol/L (23-31); Chloride 103 mmol/L (98-107); Estimated GFR 66; Globulin 2.8 g/dL (2.4-3.5); Glucose 106 mg/dL (83-110); Lipase 74 U/L (8-78); Sodium 142 mmol/L (136-145)
[2023-01-24 23:22] LABS: Bilirubin Negative (Negative); Blood, Urine Negative (Negative); Clarity Clear (Clear); Glucose, Urine (Dipstick) Normal (Negative); Ketone, Urine 40 mg/dL (Negative); Leukocyte Negative Leu/uL (Negative); Nitrite Negative (Negative); Protein, Urine (Dipstick) Negative (Neg-Trace); Specific Gravity, Urine 1.023 (1.002-1.036); Urobilinogen 6 mg/dL (Less than 2); pH, Urine 6.5 (5.0-9.0)
[2023-01-25] MEDS ORDERED: Ondansetron ODT 4 MG TAB SL PRN (00:45)
[2023-01-25] MEDS ORDERED: D5 1/2 NS w/20 mEq KCL 1,000 ML IV SCH (00:45)
[2023-01-25] MEDS ORDERED: Acetaminophen 325 MG TAB PO PRN (00:46)
[2023-01-25] MEDS ORDERED: Dicyclomine 20 MG/2 ML VIAL ONE (00:58)
[2023-01-25] MEDS: Sodium Chloride 0.9% 1,000 ML IV SCH ×2 (02:34→18:45)
[2023-01-25 02:44] VITALS: BMI 24.1
[2023-01-25 06:32] LABS: #Lymphocytes 1.4 thou/uL (1.20-3.40); #Monocytes 0.5 thou/uL (0.11-0.59); #Neutrophils 3.1 thou/uL (1.40-6.50); %Basophils 0.2 % (0.0-1.0); %Eosinophils 0.7 % (0.0-10.0); %Lymphocytes 27.8 % (21.0-51.0); %Monocytes 10.1 % (0.0-10.0); %Neutrophils 61.2 % (42.0-75.0); Hemoglobin 13.9 g/dL (14.0-18.0); Mean Corpuscular HGB CONC 33.9 g/dL (32.0-36.0); Mean Corpuscular Hemoglobin 30.8 pg (27.0-31.0); Mean Corpuscular Volume 90.7 fl (78.0-98.0); Mean Platelet Volume 7.4 fL (7.4-10.4); Platelet Count 161 10x3/uL (130-400); RBC Distribution Width 12.5 % (11.5-14.5); Red Blood Cell (RBC) Count 4.52 mill/uL (4.70-6.10)
[2023-01-25 07:01] LABS: ALT (SGPT) 12 U/L (8-55); AST (SGOT) 15 U/L (5-34); Albumin 3.4 g/dL (3.4-4.8); Alkaline Phosphatase 69 U/L (40-110); Anion Gap 13 mmol/L (10-20); BUN (Urea Nitrogen) 15 mg/dL (8.4-25.7); Bilirubin, Total 1.1 mg/dL (0.2-1.2); Calc. Creatinine Clearance 75 mL/min (70-130); Calcium 8.4 mg/dL (7.8-10.44); Carbon Dioxide 20 mmol/L (23-31); Chloride 108 mmol/L (98-107); Estimated GFR 88; Globulin 2.3 g/dL (2.4-3.5); Glucose 86 mg/dL (83-110); Potassium 3.7 mmol/L (3.5-5.1); Protein, Total 5.7 g/dL (5.8-8.1); Sodium 137 mmol/L (136-145)
[2023-01-25] MEDS ORDERED: cefOXitin 2 GM in Sodium Chloride 0.9% 100 ML IVPB SCH (07:45)
[2023-01-25] MEDS ORDERED: Pantoprazole 40 MG VIAL IVP SCH (09:00)
[2023-01-25] MEDS ORDERED: Fentanyl 250 MCG/5 ML VIAL ONE (15:06)
[2023-01-25] MEDS ORDERED: Bupivacaine/Epinephrine 0.25% 30 ML VIAL ONE ×2 (15:17→15:47)
[2023-01-25] MEDS ORDERED: cefOXitin 2 GM VIAL ONE (15:22)
[2023-01-25] MEDS ORDERED: Sodium Chloride 0.9% 100 ML ONE (15:22)
[2023-01-25] MEDS ORDERED: PROPOFOL 200 MG/20 ML VIAL ONE (15:30)
[2023-01-25] MEDS ORDERED: Ondansetron PF 4 MG/2 ML Vial ONE (15:30)
[2023-01-25] MEDS ORDERED: Lidocaine 1% PF 5 ML VIAL ONE (15:30)
[2023-01-25] MEDS ORDERED: Succinylcholine Chloride 100 MG/5 ML SYRINGE FS ONE (15:30)
[2023-01-25] MEDS ORDERED: Dexamethasone 20 MG/5 ML VIAL ONE (15:30)
[2023-01-25] MEDS ORDERED: Rocuronium Bromide 10 MG/ML (10ML VIAL) ONE (15:30)
[2023-01-25] MEDS ORDERED: Promethazine HCl 25 MG/ML VIAL IM PRN (16:15)
[2023-01-25] MEDS ORDERED: Ondansetron HCl/PF 4 MG/2 ML Vial IVP PRN (16:15)
[2023-01-25] MEDS ORDERED: SUGAMMADEX SODIUM 200 MG/2 ML VIAL ONE (16:57)
[2023-01-25] MEDS ORDERED: Acetaminophen 500 MG TAB PO SCH (17:30)
[2023-01-25] MEDS ORDERED: fentaNYL 50 mcg/mL 1 mL Vial ONE ×3 (17:40→18:08)
[2023-01-25] MEDS: Lactated Ringer's 1,000 ML IV SCH (18:41)
[2023-01-25] MEDS: Morphine 4 MG/ML VIAL SLOW IVP PRN (20:03)
[2023-01-25] MEDS: traMADol HCl 50 MG TAB PO PRN (20:09)
[2023-01-26] MEDS: traMADol HCl 50 MG TAB PO PRN (05:29)
[2023-01-26] MEDS: Morphine 4 MG/ML VIAL SLOW IVP PRN ×2 (05:29→22:35)
[2023-01-26] MEDS: Lactated Ringer's 1,000 ML IV SCH (05:33)
[2023-01-26 07:04] LABS: #Lymphocytes 0.8 thou/uL (1.20-3.40); #Monocytes 0.7 thou/uL (0.11-0.59); #Neutrophils 8.2 thou/uL (1.40-6.50); %Basophils 0.1 % (0.0-1.0); %Eosinophils 0.1 % (0.0-10.0); %Lymphocytes 8.3 % (21.0-51.0); %Monocytes 6.9 % (0.0-10.0); %Neutrophils 84.6 % (42.0-75.0); Hemoglobin 14.3 g/dL (14.0-18.0); Mean Corpuscular HGB CONC 34.5 g/dL (32.0-36.0); Mean Corpuscular Hemoglobin 30.9 pg (27.0-31.0); Mean Corpuscular Volume 89.6 fl (78.0-98.0); Platelet Count 163 10x3/uL (130-400); RBC Distribution Width 12.7 % (11.5-14.5); Red Blood Cell (RBC) Count 4.62 mill/uL (4.70-6.10); White Blood Cell (WBC) Count 9.7 10x3/uL (4.8-10.8)
[2023-01-26 07:17] LABS: ALT (SGPT) 14 U/L (8-55); AST (SGOT) 16 U/L (5-34); Albumin 3.5 g/dL (3.4-4.8); Alkaline Phosphatase 66 U/L (40-110); Anion Gap 18 mmol/L (10-20); BUN (Urea Nitrogen) 13 mg/dL (8.4-25.7); Bilirubin, Total 1.1 mg/dL (0.2-1.2); Calc. Creatinine Clearance 68 mL/min (70-130); Calcium 8.7 mg/dL (7.8-10.44); Carbon Dioxide 19 mmol/L (23-31); Chloride 104 mmol/L (98-107); Estimated GFR 81; Globulin 2.6 g/dL (2.4-3.5); Glucose 131 mg/dL (83-110); Potassium 3.9 mmol/L (3.5-5.1); Protein, Total 6.1 g/dL (5.8-8.1); Sodium 137 mmol/L (136-145)
[2023-01-26] MEDS: Atorvastatin Calcium 20 MG TAB PO SCH ×2 (20:54→20:55)
[2023-01-26] MEDS ORDERED: Simvastatin 40 MG TAB PO SCH (21:00)
[2023-01-27 07:02] LABS: #Lymphocytes 0.9 thou/uL (1.20-3.40); #Monocytes 0.6 thou/uL (0.11-0.59); #Neutrophils 7.3 thou/uL (1.40-6.50); %Basophils 0.1 % (0.0-1.0); %Eosinophils 0.3 % (0.0-10.0); %Lymphocytes 10.3 % (21.0-51.0); %Monocytes 6.7 % (0.0-10.0); %Neutrophils 82.6 % (42.0-75.0); Hemoglobin 13.5 g/dL (14.0-18.0); Mean Corpuscular HGB CONC 35.5 g/dL (32.0-36.0); Mean Corpuscular Volume 90.1 fl (78.0-98.0); Mean Platelet Volume 7.7 fL (7.4-10.4); Platelet Count 164 10x3/uL (130-400); RBC Distribution Width 12.6 % (11.5-14.5); Red Blood Cell (RBC) Count 4.21 mill/uL (4.70-6.10); White Blood Cell (WBC) Count 8.8 10x3/uL (4.8-10.8)
[2023-01-27 07:31] LABS: ALT (SGPT) 12 U/L (8-55); AST (SGOT) 12 U/L (5-34); Albumin 3.5 g/dL (3.4-4.8); Alkaline Phosphatase 67 U/L (40-110); Anion Gap 13 mmol/L (10-20); BUN (Urea Nitrogen) 14 mg/dL (8.4-25.7); Bilirubin, Total 1.6 mg/dL (0.2-1.2); Calc. Creatinine Clearance 60 mL/min (70-130); Calcium 8.9 mg/dL (7.8-10.44); Carbon Dioxide 25 mmol/L (23-31); Chloride 99 mmol/L (98-107); Estimated GFR 69; Globulin 2.7 g/dL (2.4-3.5); Glucose 131 mg/dL (83-110); Potassium 3.6 mmol/L (3.5-5.1); Protein, Total 6.2 g/dL (5.8-8.1); Sodium 133 mmol/L (136-145)
[2023-01-27] MEDS ORDERED: Polyethylene Glycol 3350 17 GM Packet PO SCH (09:00)
[2023-01-27] MEDS: traMADol HCl 50 MG TAB PO PRN ×2 (13:39→20:04)
[2023-01-27] MEDS: Acetaminophen 500 MG TAB PO PRN ×2 (13:40→20:03)
[2023-01-27] MEDS: Ondansetron PF 4 MG/2 ML Vial IVP PRN (13:40)
[2023-01-27] MEDS: Atorvastatin Calcium 20 MG TAB PO SCH (20:03)
[2023-01-28] MEDS: Senokot S 8.6-50 MG TAB PO SCH ×2 (08:19→20:43)
[2023-01-28] MEDS: Polyethylene Glycol 3350 17 GM Packet PO SCH (08:19)
[2023-01-28] MEDS: traMADol HCl 50 MG TAB PO PRN (13:31)
[2023-01-28] MEDS: Acetaminophen 500 MG TAB PO PRN (13:31)
[2023-01-28] MEDS: Ondansetron PF 4 MG/2 ML Vial IVP PRN (15:57)
[2023-01-28] MEDS: Atorvastatin Calcium 20 MG TAB PO SCH (20:43)
[2023-01-28] MEDS ORDERED: Ondansetron PF 4 MG/2 ML Vial IVP PRN (22:27)
[2023-01-28] MEDS: Morphine 4 MG/ML VIAL SLOW IVP PRN (22:36)
[2023-01-28] MEDS ORDERED: Benzocaine 20% Spray 60 ML CAN PO PRN (23:52)
[2023-01-29] MEDS: Polyethylene Glycol 3350 17 GM Packet PO SCH (10:50)
[2023-01-29] MEDS: Senokot S 8.6-50 MG TAB PO SCH ×2 (10:50→21:53)
[2023-01-29 11:12] LABS: Anion Gap 18 mmol/L (10-20); BUN (Urea Nitrogen) 16 mg/dL (8.4-25.7); Calc. Creatinine Clearance 53 mL/min (70-130); Calcium 10.1 mg/dL (7.8-10.44); Carbon Dioxide 25 mmol/L (23-31); Chloride 100 mmol/L (98-107); Estimated GFR 60; Glucose 108 mg/dL (83-110); Magnesium 2.4 mg/dL (1.6-2.6); Phosphorus 2.7 mg/dL (2.3-4.7); Potassium 3.9 mmol/L (3.5-5.1); Sodium 139 mmol/L (136-145)
[2023-01-29] MEDS ORDERED: MD-Gastroview 120 ML BOT ONE (11:33)
[2023-01-29] MEDS ORDERED: Scopolamine 1.5 mg/72 hour Patch TD SCH (12:15)
[2023-01-29] MEDS ORDERED: Ondansetron PF 4 MG/2 ML Vial IVP SCH (12:15)
[2023-01-29] MEDS ORDERED: Sodium Chloride 0.9% 1,000 ML IV SCH (13:15)
[2023-01-29] MEDS: traMADol HCl 50 MG TAB PO PRN (21:53)
[2023-01-29] MEDS: Atorvastatin Calcium 20 MG TAB PO SCH (21:54)
[2023-01-29] MEDS: Sodium Chloride 0.9% 1,000 ML IV SCH (22:01)
[2023-01-30 06:41] LABS: Anion Gap 13 mmol/L (10-20); BUN (Urea Nitrogen) 17 mg/dL (8.4-25.7); Calc. Creatinine Clearance 59 mL/min (70-130); Calcium 8.7 mg/dL (7.8-10.44); Carbon Dioxide 26 mmol/L (23-31); Chloride 107 mmol/L (98-107); Estimated GFR 67; Glucose 86 mg/dL (83-110); Magnesium 2.3 mg/dL (1.6-2.6); Phosphorus 2.6 mg/dL (2.3-4.7); Potassium 4.2 mmol/L (3.5-5.1); Sodium 142 mmol/L (136-145)
[2023-01-30] MEDS: Senokot S 8.6-50 MG TAB PO SCH ×2 (08:25→20:45)
[2023-01-30] MEDS: Polyethylene Glycol 3350 17 GM Packet PO SCH (08:26)
[2023-01-30] MEDS: Sodium Chloride 0.9% 1,000 ML IV SCH (15:18)
[2023-01-30] MEDS: Atorvastatin Calcium 20 MG TAB PO SCH (20:43)
[2023-01-31] MEDS: Sodium Chloride 0.9% 1,000 ML IV SCH (05:57)
[2023-01-31] MEDS: Polyethylene Glycol 3350 17 GM Packet PO SCH (09:11)
[2023-01-31] MEDS: Senokot S 8.6-50 MG TAB PO SCH (10:54)
[2023-01-31 12:10] VITALS: BP 129/80; TEMP 98.1
== END 2023-01-31 14:31 | disposition home or self-care (01) | DRG 337 ==
LOC: ERS 22:23 → SURG A 01-25 00:34 → OBSVTOIN 01-25 15:18 → SURG B 01-28 17:35
PROVIDERS: ADMIT Internal Medicine; ATTEND Internal Medicine
PROC: 0DN84ZZ Release Small Intestine, Percutaneous Endoscopic Approach (ICD-10-PCS; principal; 2023-01-25)
DX: K56.51 Intestinal adhesions [bands], with partial obstruction (principal); I10 Essential (primary) hypertension; K56.7 Ileus, unspecified; K21.9 Gastro-esophageal reflux disease without esophagitis; E78.00 Pure hypercholesterolemia, unspecified; Z82.49 Family history of ischemic heart disease and other diseases of the circulatory system; Z79.899 Other long term (current) drug therapy; Z90.49 Acquired absence of other specified parts of digestive tract
CPT/HCPCS: 36415; 74177; 74250; 80048; 80053; 81003; 83605; 83690; 83735; 84100; 85025; 96372; 96374; C1889; C9113; G0378; J0694; J1100; J1650; J2270; J2405; J2704; J3010; J3490; J7050; Q9963; Q9967